=== PATIENT | female | born 1975 | race African-American/Black ===

== ENCOUNTER 2016-03-30 15:34 | Emergency (ER) | payer SELFPAY ==
[~2016-03-30] VITALS: Ht 160 cm; Wt 95.0 kg
[~2016-03-30 15:34] MED LIST: [UNRECOGNIZED DRUG - CODE] TOP
[2016-03-30 15:38] VITALS: BP 120/59; PULSE 78; RESP 16; TEMP 98.2; O2SAT 96
[2016-03-30] MEDS ORDERED: CLIN1CAP6 PO (16:03)
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
== END 2016-03-30 16:12 | disposition home or self-care (01) ==
LOC: NEPA 15:34
DX: K04.7 Periapical abscess without sinus (principal); F10.20 Alcohol dependence, uncomplicated; F11.20 Opioid dependence, uncomplicated
CPT/HCPCS: 99282

== ENCOUNTER 2016-04-05 14:38 | Emergency (ER) | payer SELFPAY ==
[~2016-04-05] VITALS: Ht 160 cm; Wt 95.0 kg
[~2016-04-05 14:38] MED LIST changes: +CLIN1CAP6 PO; -[UNRECOGNIZED DRUG - CODE] TOP
[2016-04-05 14:39] VITALS: BP 164/79; PULSE 71; RESP 18; TEMP 98.8; O2SAT 99
[2016-04-05] MEDS ORDERED: CLIN1CAP6 PO (15:20)
[2016-04-05] MEDS ORDERED: NAPR500T PO (15:20)
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
== END 2016-04-05 15:54 | disposition home or self-care (01) ==
LOC: NEPB 14:38
DX: K04.7 Periapical abscess without sinus (principal)
CPT/HCPCS: 99282

== ENCOUNTER 2016-12-22 17:45 | Emergency (ER) | payer SELFPAY ==
[~2016-12-22] VITALS: Ht 160 cm; Wt 93.0 kg
[~2016-12-22 17:45] MED LIST changes: -CLIN1CAP6 PO; +CLIN300C5 PO; +NAPR500T2 PO
[2016-12-22 17:48] VITALS: BP 144/77; PULSE 64; RESP 13; TEMP 98.8; O2SAT 99
--- NOTE | 2016-12-22 18:04 | PD ---
Physical Exam Date Seen by Provider: Dec 22, 2016 Time Seen by Provider: 18:01 Narrative 41-year-old black female presents to emergency room with complaints of pain, swelling and redness in her left lower leg. She was seen by Dr. Renee today and was referred to the ER to rule out a blood clot. No fever chills. No shortness of breath or chest pain. No abdominal pain. No numbness, tingling or weakness. Vital signs reviewed. pt waiting for bed placement Data Data Last Documented VS Vital Signs Date Time Temp Pulse Resp B/P (MAP) Pulse Ox O2 Delivery O2 Flow Rate FiO2 12/22/16 17:48 98.8 64 13 144/77 (99) 99 MDM Medical Record Reviewed: No Supervised Visit with BIPIN: Orlando Lassiter Dec 22, 2016 18:04
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
[2016-12-22] MEDS ORDERED: AMPH1TAB83 PO (19:06)
[2016-12-22] MEDS ORDERED: FLUO-1 PO (19:06)
[2016-12-22] MEDS ORDERED: suboxone (19:06)
--- NOTE | 2016-12-22 19:08 | RADRPT ---
EXAM DATE/TIME: 12/22/2016 18:32 [facility] COMPARISON: No previous studies available for comparison. INDICATIONS : Bilateral leg swelling. MEDICAL HISTORY : Positive TB test. UTI. Chronic back spasm. Substance abuse. ETOH abuse. SURGICAL HISTORY : None. ENCOUNTER: Initial ACUITY: 1 day PAIN SCORE: 3/10 LOCATION: Bilateral leg. TECHNIQUE: Venous ultrasound of the left and right leg was performed from the inguinal ligament to the proximal calf. Real-time, color Doppler and spectral tracing, compression and augmentation techniques were us ed. FINDINGS: RIGHT LEG: There is normal compressibility of the deep venous system from the inguinal region to the proximal ca lf. No echogenic clot is seen in the lumen of the common femoral, femoral, popliteal, and posterior tibial veins. There is a normal response of the venous system to proximal and distal augmentation an d respiration. There are multiple prominent lymph nodes in the groin. The largest measures up to 2.6 x 1.3 cm. LEFT LEG: There is normal compressibility of the deep venous system from the inguinal region to the proximal ca lf. No echogenic clot is seen in the lumen of the common femoral, femoral, popliteal, and posterior tibial veins. There is a normal response of the venous system to proximal and distal augmentation an d respiration. There are multiple prominent lymph nodes are noted in the groin. The largest measures up to approximately 3.3 x 1.4 cm. CONCLUSION: Negative exam with no evidence of deep venous thrombosis. There are prominent lymph n odes in both inguinal regions Douglas Felix MD on December 22, 2016 at 19:05 Board Certified Radiologist. This report was verified electronically.
[2016-12-22 20:23] LABS: AUTOMATED NEUTROPHIL # 2.7 TH/MM3 (1.8-7.7); BASOPHIL % 0.6 % (0.0-2.0); EOSINOPHIL # 0.1 TH/MM3 (0-0.4); EOSINOPHIL % 1.3 % (0.0-4.0); HEMATOCRIT 33.1 % (35.0-46.0); HEMO FLAGS DIFF FINAL; LYMPH % 25.6 % (9.0-44.0); LYMPHOCYTE # 1.1 TH/MM3 (1.0-4.8); MEAN CELL VOLUME 77.9 FL (80.0-100.0); MEAN CORPUSCULAR HGB CONC 32.1 % (32.0-36.0); MONO % 8.6 % (0.0-8.0); NEUT % 63.9 % (16.0-70.0); PLATELET COUNT 227 TH/MM3 (150-450); RED BLOOD COUNT 4.25 MIL/MM3 (4.00-5.30); RED CELL DISTRIBUTION WIDTH 17.1 % (11.6-17.2); WHITE BLOOD COUNT 4.2 TH/MM3 (4.0-11.0)
[2016-12-22 20:44] LABS: ALT (GPT) 80 U/L (10-53)
[2016-12-22 20:47] LABS: ALKALINE PHOSPHATASE 97 U/L (45-117); TOTAL BILIRUBIN ADULT 0.5 MG/DL (0.2-1.0)
[2016-12-22 20:50] LABS: ANION GAP 7 MEQ/L (5-15); AST (GOT) 86 U/L (15-37); BICARBONATE 25.6 MEQ/L (21.0-32.0); BLOOD UREA NITROGEN 7 MG/DL (7-18); CHLORIDE 103 MEQ/L (98-107); GLOMERULAR FILTRATION RATE 115 ML/MIN (>89); POTASSIUM 3.4 MEQ/L (3.5-5.1); SODIUM (NA) 136 MEQ/L (136-145)
[2016-12-22 20:52] LABS: BLOOD, URINE NEG (NEG); COMMENT (UR) CULT NOT INDICATED; CULTURE IF INDICATED CULT NOT INDICATED; GLUCOSE,URINE NEG (NEG); HYALINE CAST, URINE 1 /lpf (RARE); KETONE, URINE NEG (NEG); MUCUS URINE FEW /lpf (OCC); NITRITE,URINE NEG (NEG); PH, URINE 6.5 (5.0-8.5); SQUAMOUS EPITHELIAL CELL URINE 1 /hpf (0-5); URINE COLOR YELLOW (YELLW/STRAW)
[2016-12-22] MEDS ORDERED: CEPH-460 PO (21:04)
[2016-12-22] MEDS ORDERED: BACT800T5 PO (21:04)
[2016-12-22] MEDS ORDERED: CEPHALEXIN MONOHYDRATE 500 MG CAP PO ONE (21:15)
[2016-12-22] MEDS ORDERED: POTASSIUM CHLORIDE 20 MEQ CONTROLLED RELEASE TAB PO ONE (21:15)
[2016-12-22] MEDS ORDERED: SULFAMETHOXAZOLE-TRIMETHOPRIM DS 800-160 MG TAB PO ONE (21:15)
[2016-12-22 21:30] VITALS: BP 142/68
[2016-12-22] MEDS ORDERED: IBUPROFEN 800 MG TAB PO ONE (21:30)
== END 2016-12-22 21:45 | disposition home or self-care (01) ==
LOC: NEPC 17:45
DX: L03.116 Cellulitis of left lower limb (principal); R79.89 Other specified abnormal findings of blood chemistry; Z79.899 Other long term (current) drug therapy; Z88.6 Allergy status to analgesic agent; Z88.8 Allergy status to other drugs, medicaments and biological substances
CPT/HCPCS: 80053; 81001; 84703; 85025; 93970; 99285

== ENCOUNTER 2017-03-21 21:22 | Emergency (ER) | payer OTHER ==
[~2017-03-21] VITALS: Ht 177.8 cm; Wt 86.0 kg
[~2017-03-21 21:22] MED LIST changes: +AMPH1TAB83 PO; +BACT800T5 PO; +CEPH-460 PO; -CLIN300C5 PO; +FLUO-1 PO; +suboxone
[2017-03-21 21:24] VITALS: BP 124/72; PULSE 70; RESP 16; TEMP 98.7; O2SAT 99
[2017-03-21] MEDS ORDERED: SILV1CRE20 TOPICAL (23:19)
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
[2017-03-21] MEDS ORDERED: SILVER SULFADIAZINE 1% CR 50 GM JAR TOPICAL ONE (23:30)
== END 2017-03-22 00:05 | disposition home or self-care (01) ==
LOC: NEPE 21:22
DX: T25.022A Burn of unspecified degree of left foot, initial encounter (principal); X11.8XXA Contact with other hot tap-water, initial encounter
CPT/HCPCS: 16000